=== PATIENT | female | born 1955 | race Caucasian/White ===

== ENCOUNTER → 2019-03-14 | Day surgery (SDC) | payer MEDICARE ==
[2019-03-11 15:39] LABS: BASOPHILS % 0.6 % (0.0-1.0); EOSINOPHILS # (AUTO) 0.2 (0.0-0.4); EOSINOPHILS % 4.7 % (0.0-6.0); HEMATOCRIT 33.4 % (34.2-44.1); HEMOGLOBIN 10.8 g/dL (12.0-16.0); LYMPHOCYTES % 19.9 % (18.0-39.1); MEAN CORPUSCULAR HEMOGLOBIN 33.3 pg (28-32); MEAN CORPUSCULAR HGB CONC 32.3 g/dL (31-35); MEAN CORPUSCULAR VOLUME 103.1 fL (81-99); MONOCYTES # (AUTO) 0.6 (0.2-0.8); MONOCYTES % 11.2 % (4.4-11.3); NEUTROPHILS # (AUTO) 3.2 (2.1-6.9); NEUTROPHILS % 63.4 % (38.7-80.0); PLATELET COUNT 262 x10e3/uL (140-360); RED BLOOD COUNT 3.24 x10e6/uL (3.6-5.1)
--- NOTE | 2019-03-11 15:53 | Diagnostic Imaging Report ---
EXAMINATION: CHEST 2 VIEWS INDICATION: Pre-operative COMPARISON: None FINDINGS: LINES/TUBES:Thoracic spine neurostimulator lead partially visualized. LUNGS:The lungs are well-inflated. No focal consolidation or pulmonary edema. PLEURA:No pleural effusion or pneumothorax. MEDIASTINUM:The cardiomediastinal silhouette appears normal in size and shape. BONES/SOFT TISSUES:No acute osseous injury. Degenerative changes of the visualized spine ABDOMEN:No free air under the diaphragm. IMPRESSION: No focal pneumonia or pulmonary edema. Signed by: Merlin Luz MD on 03/11/2019 3:49 PM
[2019-03-11 15:54] LABS: ALANINE AMINOTRANSFERASE 35 IU/L (0-55); ALBUMIN 3.6 g/dL (3.5-5.0); ALBUMIN/GLOBULIN RATIO 1.7 (0.8-2.0); ALKALINE PHOSPHATASE 64 IU/L (40-150); ANION GAP 10.3 mmol/L (8-16); BLOOD UREA NITROGEN 19 mg/dL (7-26); BUN/CREATININE RATIO 24 (6-25); CALCIUM 8.4 mg/dL (8.4-10.2); CARBON DIOXIDE 27 mmol/L (22-29); CHLORIDE 106 mmol/L (98-107); CREATININE, SERUM 0.79 mg/dL (0.57-1.11); EST GLOMERULAR FILTRATION RATE > 60 ML/MIN (60-); GLUCOSE 70 mg/dL (74-118); POTASSIUM 4.3 mmol/L (3.5-5.1); SODIUM 139 mmol/L (136-145)
[~2019-03-14] MED LIST: CYMBALTA30 MG PO; FENTANYL CITRATE/PF 100MCG/2 ML INJ ONE; LISINOPRIL10 MG PO; MIDAZOLAM HCL 2 MG/2 ML VIAL ONE; PROPOFOL IV EMULSION 10 MG/ML 20 ML VIAL ONE; SIMETHICONE 40 MG/0.6 ML BTL ONE; SYNTHROID125 MCG PO
--- OUTSIDE RECORDS SUMMARY | 2019-03-14 06:41 | XMS REPORT ---
Author Author [facility] Address Unknown Phone Unavailable Care Team Providers Care Home Improvement Contractor Name Role Phone Kayla TRAN Unavailable Unavailable Payers Payer Name Policy Type Policy Number Effective Date Expiration Date Problems This patient has no known problems. Allergies, Adverse Reactions, Alerts Allergy Name Allergy Type Status Severity Reaction(s) Onset Date Inactive Date Treating Clinician Comments Iodinated Contrast- Oral and IV Dye DA Active U 2018-06-08 00:00:00 shellfish derived FA Active U 2018-06-08 00:00:00 shellfish derived DA Active U 2018-06-08 00:00:00 No Known Intolerances DA Active U 2008-11-07 00:00:00 Medications This patient has no known medications. Encounters Start Date/Time End Date/Time Encounter Type Admission Type Attending [facility] Care Facility Care Department Encounter ID 2019-01-08 08:27:00 2019-01-08 08:27:00 Outpatient [facility]SE [id number] Results Test Description Test Time Test Comments Text Results Atomic Results Result Comments CHEST 2 VIEWS 2019-03-11 15:49:00 [facility] [address] [place], [place] [address] Patient Name: ALANA LEWIS MR #: [id number] : 1955 Age/Sex: 63/F Req #: [id number] Adm Physician: Ordered by: INDY TRAN MD Report #: [id number] Location: OR Room/Bed: Procedure: [id number] DX/CHEST 2 VIEWS Exam Date: 03/11/19 Exam Time: 1529 REPORT STATUS: Signed EXAMINATION: CHEST 2 VIEWS INDICATION: Pre-operative COMPARISON: None FINDINGS: LINES/TUBES:Thoracic spine neurostimulator lead partially visualized. LUNGS:The lungs are well- inflated. No focal consolidation or pulmonary edema. PLEURA:No pleural effusion or pneumothorax. MEDIASTINUM:The cardiomediastinal silhouette appears normal in size and shape. BONES/SOFT TISSUES:No acute osseous injury. Degenerative changes of the visualized spine ABDOMEN:No free air under the diaphragm. IMPRESSION: No focal pneumonia or pulmonary edema. Signed by: Mitzi Pineda MD on 03/11/2019 3:49 PM Dictated By: MITZI PINEDA MD 0816 Transcribed By: PETER on 03/11/19 5958 COPY TO: INDY TRAN MD - SMALL INTESTINE 2019-02-01 11:29:00 FAX: Pedro Ruano [phone] [place]: St: REG FAX: Indy Leonardo [phone] Name: ALANA LEWIS [facility] : 1955 Age/S: 63/F [address] Unit #: [id number] Loc: [place] [address] Phys: Indy Tran MD Acct: [id number] Dis Date: Status: REG CLI PHONE #: [phone] Exam Date: 02/01/2019 1112 FAX #: [phone] Reason: INTUSSUSCEPTION EXAMS: CPT CODE: [id number] XR SMALL INTESTINE 50133 EXAMINATION: - XR UGI W/AIR W/O KUB, - XR SMALL INTESTINE. LOCATION: B2. HISTORY: Left upper abdominal pain. Patient has history of prior gastric bypass. Patient was found to have an intussusception on outpatient CT at another facility. COMPARISON: None. TECHNIQUE: Upper GI examination with small bowel follow through was performed with the oral administration of barium. Fluoroscopy time: 1.7 minutes Dose: 63 mGy FINDINGS: Views of the esophagus demonstrated no evidence of obstruction, perforation, or stricture. Contrast flowed freely past the gastroesophageal junction. Postsur gical changes of gastric bypass are redemonstrated. There was prompt gastric emptying with a normal appearance and configuration of the duodenum. No gastroesophageal reflux or hiatal hernia was identified during the examination. The caliber and appearance of the small bowel appears normal with no evidence of partial or complete small bowel obstruction. No masses are identified. The terminal ileum appears normal. IMPRESSION: Postsurgical changes of gastric bypass. Otherwise normal upper GI examination with small bowel follow-through. at 1129 Reported and signed by: Krystian Bunch MD CC: Pedro Cifuentes DO; Indy Tran MD Technologist: Mikki Wynn; STUDENT TECHNOLOGIST Trnscrd Date/Time/By: 02/01/2019 (1123) : By: [email or web address] [facility] Print D/T: S: 02/01/2019 (0619) PAGE 1 Signed Report - XR UGI W/AIR W/O KUB 2019-02-01 11:29:00 FAX: Pedro Ruano DO [phone] [place]: St: [facility] FAX: Indy Leonardo [phone] Name: ALANA LEWIS [facility] : 1955 Age/S: 63/F [address] Unit #: [id number] Loc: [place] [address] Phys: Indy Tran MD Acct: [id number] Dis Date: Status: REG CLI PHONE #: [phone] Exam Date: 02/01/2019 1045 FAX #: [phone] Reason: EXAMS: CPT CODE: [id number] XR UGI W/AIR W/O KUB 17272 EXAMINATION: - XR UGI W/AIR W/O KUB, - XR SMALL INTESTINE. LOCATION: B2. HISTORY: Left upper abdominal pain. Patient has history of prior gastric bypass. Patient was found to have an intussusception on outpatient CT at another facility. COMPARISON: None. TECHNIQUE: Upper GI examination with small bowel follow through was performed with the oral administration of barium. Fluoroscopy time: 1.7 minutes Dose: 63 mGy FINDINGS: Views of the esophagus demonstrated no evidence of obstruction, perforation, or stricture. Contrast flowed freely past the gastroesophageal junction. Postsur gical changes of gastric bypass are redemonstrated. There was prompt gastric emptying with a normal appearance and configuration of the duodenum. No gastroesophageal reflux or hiatal hernia was identified during the examination. The caliber and appearance of the small bowel appears normal with no evidence of partial or complete small bowel obstruction. No masses are identified. The terminal ileum appears normal. IMPRESSION: Postsurgical changes of gastric bypass. Otherwise normal upper GI examination with small bowel follow-through. at 1129 Reported and signed by: Krystian Bunch MD CC: Pedro Cifuentes DO; Indy Tran MD Technologist: Mikki Wynn; STUDENT TECHNOLOGIST Trnscrd Date/Time/By: 02/01/2019 (3370) : By: [email or web address] Orig Print D/T: S: 02/01/2019 (9980) PAGE 1 Signed Report SCR MAMM BILATERAL VA CAD DIGITAL 2018-12-17 11:29:10 - SCR MAMM BILATERAL VA CAD DIGITALBILATERAL DIGITAL SCREENING MAMMOGRAM 3D/2D WITH CAD: 12/14/2018CLINICAL: Asymptomatic. Digital breast tomosynthesis was performed in addition to routine CC and MLO views. Current mammographic images were evaluated by either a [employer] M-Vu or a [employer] ImageChecker CAD (computer aided detection system). Comparison is made to exams dated 08/16/2016 mammogram, 11/06 mammogram, and 05/10/2006 mammogram - [facility]-. The tissue of both breasts is predominantly fatty. There are benign calcifications in both breasts. No suspicious mass, architectural distortion, malignant type calcification, or lymph node abnormality detected. Breast architecture is stable compared to prior exams.IMPRESSION: BENIGNThere is no mammographic evidence of malignancy. Resume annual screening mammography in one year. Neftaly Mancia/nohemy:12/17/2018 11:29:10 copy to: Pedro Cifuentes DO, ph: [phone], fax: [phone] Technologist: Opal Marr , [facility]-FWletter sent: BIRADS 1-2 Normal Mammogram BI-RADS: 2 Benign SURGICAL SPECIMENS 2018-07-09 02:44:00 RUN DATE: 07/09/18 [facility] *LIVE* PAGE 1 RUN TIME: 244 Specimen Inquiry RUN USER: INTERFACE PATIENT: ALANA LEWIS LOC: JULIO U #: [id number] AGE/SX: 63/F ROOM: [facility] RE07/04/18REG DR: Keron Botello : [birth year] BED: 1 DIS: 07/06/18 STATUS: DIS Kadeem TLOC: SPEC #: [id number] RECD: 07/05/18 STATUS: SOUT REQ #: [id number] ELENA: 07/05/[address]: Keron Botello MD ENTERED: 07/07/18 SP TYPE: SURG SPEC OTHR DR: Marilynn Altman MD, Toby C DOORDERED: GM LEVEL 4 CODES: [id number] - VERTEBRA, NOS COPIES TO: Marilynn Altman MD [address] [place] [address] Pedro Cifuentes DO [address] [place], [place] [id number] Keron Botello MD [address], [address] [place] [address] PROCEDURES: GM LEVEL 4 (Incomplete) TISSUES: 1. VERTEBRA, NOS - mine engineering manager, dorsal column, stimulator FINAL DIAGNOSIS mine engineering manager, dorsal column stimulator: Gross diagnosis only. GROSS AND MICROSCOPIC GROSS EXAMINATION: Received fresh labeled dorsal column stimulator is a 5.2 x 4.5 x 1 cm stimulator with 2 wire leads labeled [employer] precision IP G. model SC-1110, serial #[id number]. Gross examination only. POST-OP DIAGNOSIS None given CONTINUED ON NEXT PAGE RUN DATE: 07/09/18 [facility] *LIVE* PAGE 2 RUN TIME: 024 Specimen Inquiry RUN USER: INTERFACE EDMOND JEFFERS #: [id number] PATIENT: ALANA LEWIS #[id number] (Continued) PRE-OP DIAGNOSIS Lumbar stenosis, status post lumbar decompression REVIEWED BY: KARLIE Signed SIGNATURE ON FILE Duglas Beaulieu DO 07/09/18 0244 END OF REPORT BASIC METABOLIC PANEL 2018 08:39:00 SODIUM (test code=NA) 143 mEq/L 134-147 POTASSIUM (test code=K) 4.6 mEq/L 3.4-5.0 CHLORIDE (test code=CL) 114 mEq/L 100-108 CARBON DIOXIDE (test code=CO2) 24 mEq/L 21-33 ANION GAP (test code=GAP) 10 0-20 GLUCOSE (test code=GLU) 77 mg/dL 70-110 BLOOD UREA NITROGEN (test code=BUN) 17 mg/dL 7-18 GLOMERULAR FILTRATION RATE (test code=GFR) 63.7 80-90 Units of measure=ml/min/1.73 m2 CREATININE (test code=CREAT) 0.9 mg/dL 0.6-1.3 CALCIUM (test code=CA) 7.8 mg/dL 8.0-10.5 CBC W/AUTO [id number] 07:52:00* Test Item Value Reference Range Comments WHITE BLOOD CELL (test code=WBC) 4.52 x10 3/uL 4.5-11.0 RED BLOOD CELL (test code=RBC) 2.96 x10 6/uL 3.54-5.02 HEMOGLOBIN (test code=HGB) 10.3 g/dL 11.0-15.0 HEMATOCRIT (test code=HCT) 32.5 % 33.0-45.0 MEAN CELL VOLUME (test code=MCV) 109.8 fL 81.0-99.0 MEAN CELL HGB (test code=MCH) 34.8 pg 27.0-33.0 MEAN CELL HGB CONCETRATION (test code=MCHC) 31.7 g/dL 33.0-37.0 RED CELL DISTRIBUTION WIDTH CV (test code=RDW) 12.6 % 11.5-14.5 RED CELL DISTRIBUTION WIDTH SD (test code=RDW-SD) 50.4 fL 37.0-54.0 PLATELET COUNT (test code=PLT) 194 x10 3/uL 150-400 MEAN PLATELET VOLUME (test code=MPV) 10.8 fL 7.0-9.0 NEUTROPHIL % (test code=NT%) 51.2 % 56.0-77.0 IMMATURE GRANULOCYTE % (test code=IG%) 0.2 % 0.0-2.0 LYMPHOCYTE % (test code=LY%) 32.3 % 14.0-32.0 MONOCYTE % (test code=MO%) 8.2 % 4.8-9.0 EOSINOPHIL % (test code=EO%) 7.7 % 0.3-3.7 BASOPHIL % (test code=BA%) 0.4 % 0.0-2.0 NUCLEATED RBC % (test code=NRBC%) 0.0 % 0-0 NEUTROPHIL # (test code=NT#) 2.31 x10 3/uL 2.0-7.6 IMMATURE GRANULOCYTE # (test code=IG#) 0.01 x10 3/uL 0.00-0.03 LYMPHOCYTE # (test code=LY#) 1.46 x10 3/uL 1.0-3.8 MONOCYTE # (test code=MO#) 0.37 x10 3/uL 0.1-0.8 EOSINOPHIL # (test code=EO#) 0.35 x10 3/uL 0.0-0.2 BASOPHIL # (test code=BA#) 0.02 x10 3/uL 0.0-0.2 NUCLEATED RBC # (test code=NRBC#) 0.00 x10 3/uL 0.0-0.1 MANUAL DIFF REQUIRED (test code=MDIFF) NO CBC W/AUTO [id number] 11:06:00* Test Item Value Reference Range Comments WHITE BLOOD CELL (test code=WBC) 6.24 x10 3/uL 4.5-11.0 RED BLOOD CELL (test code=RBC) 3.08 x10 6/uL 3.54-5.02 HEMOGLOBIN (test code=HGB) 10.6 g/dL 11.0-15.0 HEMATOCRIT (test code=HCT) 33.0 % 33.0-45.0 MEAN CELL VOLUME (test code=MCV) 107.1 fL 81.0-99.0 MEAN CELL HGB (test code=MCH) 34.4 pg 27.0-33.0 MEAN CELL HGB CONCETRATION (test code=MCHC) 32.1 g/dL 33.0-37.0 RED CELL DISTRIBUTION WIDTH CV (test code=RDW) 12.1 % 11.5-14.5 RED CELL DISTRIBUTION WIDTH SD (test code=RDW-SD) 47.8 fL 37.0-54.0 PLATELET COUNT (test code=PLT) 186 x10 3/uL 150-400 MEAN PLATELET VOLUME (test code=MPV) 10.6 fL 7.0-9.0 NEUTROPHIL % (test code=NT%) 77.6 % 56.0-77.0 IMMATURE GRANULOCYTE % (test code=IG%) 0.2 % 0.0-2.0 LYMPHOCYTE % (test code=LY%) 12.8 % 14.0-32.0 MONOCYTE % (test code=MO%) 8.8 % 4.8-9.0 EOSINOPHIL % (test code=EO%) 0.3 % 0.3-3.7 BASOPHIL % (test code=BA%) 0.3 % 0.0-2.0 NUCLEATED RBC % (test code=NRBC%) 0.0 % 0-0 NEUTROPHIL # (test code=NT#) 4.84 x10 3/uL 2.0-7.6 IMMATURE GRANULOCYTE # (test code=IG#) 0.01 x10 3/uL 0.00-0.03 LYMPHOCYTE # (test code=LY#) 0.80 x10 3/uL 1.0-3.8 MONOCYTE # (test code=MO#) 0.55 x10 3/uL 0.1-0.8 EOSINOPHIL # (test code=EO#) 0.02 x10 3/uL 0.0-0.2 BASOPHIL # (test code=BA#) 0.02 x10 3/uL 0.0-0.2 NUCLEATED RBC # (test code=NRBC#) 0.00 x10 3/uL 0.0-0.1 MANUAL DIFF REQUIRED (test code=MDIFF) NO RBC [id number] 11:06:00* Test Item Value Reference Range Comments POIKILOCYTOSIS (test code=POIK) 1+ ANISOCYTOSIS (test code=ANISO) 1+ MACROCYTOSIS (test code=MACR) 2+ OVALOCYTES (test code=OVAL) 1+ CBC W/AUTO [id number] 07:52:00* Test Item Value Reference Range Comments WHITE BLOOD CELL (test code=WBC) 6.24 x10 3/uL 4.5-11.0 RED BLOOD CELL (test code=RBC) 3.08 x10 6/uL 3.54-5.02 HEMOGLOBIN (test code=HGB) 10.6 g/dL 11.0-15.0 HEMATOCRIT (test code=HCT) 33.0 % 33.0-45.0 MEAN CELL VOLUME (test code=MCV) 107.1 fL 81.0-99.0 MEAN CELL HGB (test code=MCH) 34.4 pg 27.0-33.0 MEAN CELL HGB CONCETRATION (test code=MCHC) 32.1 g/dL 33.0-37.0 RED CELL DISTRIBUTION WIDTH CV (test code=RDW) 12.1 % 11.5-14.5 RED CELL DISTRIBUTION WIDTH SD (test code=RDW-SD) 47.8 fL 37.0-54.0 PLATELET COUNT (test code=PLT) 186 x10 3/uL 150-400 MEAN PLATELET VOLUME (test code=MPV) 10.6 fL 7.0-9.0 NEUTROPHIL % (test code=NT%) 77.6 % 56.0-77.0 IMMATURE GRANULOCYTE % (test code=IG%) 0.2 % 0.0-2.0 LYMPHOCYTE % (test code=LY%) 12.8 % 14.0-32.0 MONOCYTE % (test code=MO%) 8.8 % 4.8-9.0 EOSINOPHIL % (test code=EO%) 0.3 % 0.3-3.7 BASOPHIL % (test code=BA%) 0.3 % 0.0-2.0 NUCLEATED RBC % (test code=NRBC%) 0.0 % 0-0 NEUTROPHIL # (test code=NT#) 4.84 x10 3/uL 2.0-7.6 IMMATURE GRANULOCYTE # (test code=IG#) 0.01 x10 3/uL 0.00-0.03 LYMPHOCYTE # (test code=LY#) 0.80 x10 3/uL 1.0-3.8 MONOCYTE # (test code=MO#) 0.55 x10 3/uL 0.1-0.8 EOSINOPHIL # (test code=EO#) 0.02 x10 3/uL 0.0-0.2 BASOPHIL # (test code=BA#) 0.02 x10 3/uL 0.0-0.2 NUCLEATED RBC # (test code=NRBC#) 0.00 x10 3/uL 0.0-0.1 MANUAL DIFF REQUIRED (test code=MDIFF) NO RBC [id number] 07:52:00* Test Item Value Reference Range Comments ANISOCYTOSIS (test code=ANISO) CBC W/AUTO [id number] 07:52:00* Test Item Value Reference Range Comments WHITE BLOOD CELL (test code=WBC) 6.24 x10 3/uL 4.5-11.0 RED BLOOD CELL (test code=RBC) 3.08 x10 6/uL 3.54-5.02 HEMOGLOBIN (test code=HGB) 10.6 g/dL 11.0-15.0 HEMATOCRIT (test code=HCT) 33.0 % 33.0-45.0 MEAN CELL VOLUME (test code=MCV) 107.1 fL 81.0-99.0 MEAN CELL HGB (test code=MCH) 34.4 pg 27.0-33.0 MEAN CELL HGB CONCETRATION (test code=MCHC) 32.1 g/dL 33.0-37.0 RED CELL DISTRIBUTION WIDTH CV (test code=RDW) 12.1 % 11.5-14.5 RED CELL DISTRIBUTION WIDTH SD (test code=RDW-SD) 47.8 fL 37.0-54.0 PLATELET COUNT (test code=PLT) 186 x10 3/uL 150-400 MEAN PLATELET VOLUME (test code=MPV) 10.6 fL 7.0-9.0 NEUTROPHIL % (test code=NT%) 77.6 % 56.0-77.0 IMMATURE GRANULOCYTE % (test code=IG%) 0.2 % 0.0-2.0 LYMPHOCYTE % (test code=LY%) 12.8 % 14.0-32.0 MONOCYTE % (test code=MO%) 8.8 % 4.8-9.0 EOSINOPHIL % (test code=EO%) 0.3 % 0.3-3.7 BASOPHIL % (test code=BA%) 0.3 % 0.0-2.0 NUCLEATED RBC % (test code=NRBC%) 0.0 % 0-0 NEUTROPHIL # (test code=NT#) 4.84 x10 3/uL 2.0-7.6 IMMATURE GRANULOCYTE # (test code=IG#) 0.01 x10 3/uL 0.00-0.03 LYMPHOCYTE # (test code=LY#) 0.80 x10 3/uL 1.0-3.8 MONOCYTE # (test code=MO#) 0.55 x10 3/uL 0.1-0.8 EOSINOPHIL # (test code=EO#) 0.02 x10 3/uL 0.0-0.2 BASOPHIL # (test code=BA#) 0.02 x10 3/uL 0.0-0.2 NUCLEATED RBC # (test code=NRBC#) 0.00 x10 3/uL 0.0-0.1 MANUAL DIFF REQUIRED (test code=MDIFF) NO RBC [id number] 07:52:00* Test Item Value Reference Range Comments ANISOCYTOSIS (test code=ANISO) BASIC METABOLIC [id number] 07:29:00* Test Item Value Reference Range Comments SODIUM (test code=NA) 141 mEq/L 134-147 POTASSIUM (test code=K) 4.6 mEq/L 3.4-5.0 CHLORIDE (test code=CL) 112 mEq/L 100-108 CARBON DIOXIDE (test code=CO2) 24 mEq/L 21-33 ANION GAP (test code=GAP) 10 0-20 GLUCOSE (test code=GLU) 104 mg/dL 70-110 BLOOD UREA NITROGEN (test code=BUN) 12 mg/dL 7-18 GLOMERULAR FILTRATION RATE (test code=GFR) 85.4 80-90 Units of measure=ml/min/1.73 m2 CREATININE (test code=CREAT) 0.7 mg/dL 0.6-1.3 CALCIUM (test code=CA) 7.2 mg/dL 8.0-10.5 - XR FLUOROSCOPY 0-60 [id number] 13:29:00 FAX: Pedro Ruano DO [phone] [place]: St: ADM FAX: Keron Bravo [phone] Name: ALANA LEWIS [facility] : 1955 Age/S: 62/F [address] [place] [address] Unit #: [id number] Loc: [place] [address] Phys: Keron Botello MD Acct: [id number] Dis Date: Status: ADM IN PHONE #: [phone] Exam Date: 07/04/2018 1105 FAX #: [phone] Reason: LUMBAR STENOSIS EXAMS: CPT CODE: [id number] XR FLUOROSCOPY 0-60 MIN 56190 Intraprocedural fluoroscopy was provided by the Department of Radiology. Any images obtained were interpreted by the surgeon intraop eratively. FLUORO TIME: 5 seconds REFERENCE AIR KERMA : 5.1 mGy SL:01 at 1329 Reported and signed by: Larry Rivera M.D. CC: Pedro Cifuentes DO; Keron Botello MD Technologist: Kari Oliver RT(R) Trnscrd Date/Time/By: 07/04/2018 (9902) : By: Jameel Orig Print D/T: S: (1819) PAGE 1 Signed Rep ort HGB [id number] 13:09:00* Test Item Value Reference Range Comments HEMOGLOBIN (test code=HGB) 11.4 g/dL 11.0-15.0 HEMATOCRIT (test code=HCT) 35.3 % 33.0-45.0 [id number] 11:44:00* Test Item Value Reference Range Comments SODIUM (test code=NA/ABG) MEQ/L 134-147 [id number] 11:44:00* Test Item Value Reference Range Comments POTASSIUM (test code=K/ABG) MEQ/L 3.4-5.0 CREATININE [id number] 11:44:00* Test Item Value Reference Range Comments CREATININE ABG (test code=CREAABG) mg/dL 0.6-1.0 [id number] 11:44:00* Test Item Value Reference Range Comments HEMOGLOBIN (test code=HGB/ABG) G/DL 11.0-15.0 [id number] 11:44:00* Test Item Value Reference Range Comments HEMATOCRIT (test code=HCT/ABG) % 33.0-45.0 POC IONIZED [id number] 11:44:00* Test Item Value Reference Range Comments POC IONIZED CALCIUM (test code=POCCA) MMOL/L 1.12-1.32 POC [id number] 11:44:00* Test Item Value Reference Range Comments POC GLUCOSE (test code=POCGLU) MG/DL 70-110 POC VENOUS BLOOD [id number] 11:44:00* Test Item Value Reference Range Comments POC VENOUS BLOOD GAS PH (test code=POCPHV) 7.363 7.33-7.45 POC VENOUS BLOOD GAS PCO2 (test code=KTWHJY7X) 41.6 mmHg 43-47 POC VENOUS BLOOD GAS PO2 (test code=ZTILJ2M) 58.1 mmHG 10-50 POC TCO2 VENOUS (test code=SBJGVL4Q) 24.9 POC HCO3 VENOUS (test code=WZZGSC2C) 23.7 MMOL/L 22-27 POC BASE EXCESS VENOUS (test code=POCBEV) -1.7 MMOL/L -4.0-4.0 POC O2 SATURATION VENOUS (test code=PDXM1FZ) 88.7 % 60-80 [id number] 11:44:00* Test Item Value Reference Range Comments CHLORIDE (test code=CL/VBG) MEQ/L [id number] 11:44:00* Test Item Value Reference Range Comments SODIUM (test code=NA/ABG) 141 MEQ/L 134-147 [id number] 11:44:00* Test Item Value Reference Range Comments POTASSIUM (test code=K/ABG) MEQ/L 3.4-5.0 CREATININE [id number] 11:44:00* Test Item Value Reference Range Comments CREATININE ABG (test code=CREAABG) mg/dL 0.6-1.0 [id number] 11:44:00* Test Item Value Reference Range Comments HEMOGLOBIN (test code=HGB/ABG) G/DL 11.0-15.0 [id number] 11:44:00* Test Item Value Reference Range Comments HEMATOCRIT (test code=HCT/ABG) % 33.0-45.0 POC IONIZED [id number] 11:44:00* Test Item Value Reference Range Comments POC IONIZED CALCIUM (test code=POCCA) MMOL/L 1.12-1.32 POC [id number] 11:44:00* Test Item Value Reference Range Comments POC GLUCOSE (test code=POCGLU) MG/DL 70-110 POC VENOUS BLOOD [id number] 11:44:00* Test Item Value Reference Range Comments POC VENOUS BLOOD GAS PH (test code=POCPHV) 7.363 7.33-7.45 POC VENOUS BLOOD GAS PCO2 (test code=KBPJWJ3R) 41.6 mmHg 43-47 POC VENOUS BLOOD GAS PO2 (test code=ALCAV9F) 58.1 mmHG 10-50 POC TCO2 VENOUS (test code=CLPDOZ4L) 24.9 POC HCO3 VENOUS (test code=WJDEMF2U) 23.7 MMOL/L 22-27 POC BASE EXCESS VENOUS (test code=POCBEV) -1.7 MMOL/L -4.0-4.0 POC O2 SATURATION VENOUS (test code=DJQU7BA) 88.7 % 60-80 [id number] 11:44:00* Test Item Value Reference Range Comments CHLORIDE (test code=CL/VBG) MEQ/L [id number] 11:44:00* Test Item Value Reference Range Comments SODIUM (test code=NA/ABG) 141 MEQ/L 134-147 [id number] 11:44:00* Test Item Value Reference Range Comments POTASSIUM (test code=K/ABG) 4.0 MEQ/L 3.4-5.0 CREATININE [id number] 11:44:00* Test Item Value Reference Range Comments CREATININE ABG (test code=CREAABG) mg/dL 0.6-1.0 [id number] 11:44:00* Test Item Value Reference Range Comments HEMOGLOBIN (test code=HGB/ABG) G/DL 11.0-15.0 [id number] 11:44:00* Test Item Value Reference Range Comments HEMATOCRIT (test code=HCT/ABG) % 33.0-45.0 POC IONIZED [id number] 11:44:00* Test Item Value Reference Range Comments POC IONIZED CALCIUM (test code=POCCA) MMOL/L 1.12-1.32 POC [id number] 11:44:00* Test Item Value Reference Range Comments POC GLUCOSE (test code=POCGLU) MG/DL 70-110 POC VENOUS BLOOD [id number] 11:44:00* Test Item Value Reference Range Comments POC VENOUS BLOOD GAS PH (test code=POCPHV) 7.363 7.33-7.45 POC VENOUS BLOOD GAS PCO2 (test code=CCYGWH5Y) 41.6 mmHg 43-47 POC VENOUS BLOOD GAS PO2 (test code=WXPNG1N) 58.1 mmHG 10-50 POC TCO2 VENOUS (test code=WXHPGL1B) 24.9 POC HCO3 VENOUS (test code=IDXSUI3X) 23.7 MMOL/L 22-27 POC BASE EXCESS VENOUS (test code=POCBEV) -1.7 MMOL/L -4.0-4.0 POC O2 SATURATION VENOUS (test code=ARZP9VS) 88.7 % 60-80 [id number] 11:44:00* Test Item Value Reference Range Comments CHLORIDE (test code=CL/VBG) MEQ/L [id number] 11:44:00* Test Item Value Reference Range Comments SODIUM (test code=NA/ABG) 141 MEQ/L 134-147 [id number] 11:44:00* Test Item Value Reference Range Comments POTASSIUM (test code=K/ABG) 4.0 MEQ/L 3.4-5.0 CREATININE [id number] 11:44:00* Test Item Value Reference Range Comments CREATININE ABG (test code=CREAABG) mg/dL 0.6-1.0 [id number] 11:44:00* Test Item Value Reference Range Comments HEMOGLOBIN (test code=HGB/ABG) G/DL 11.0-15.0 [id number] 11:44:00* Test Item Value Reference Range Comments HEMATOCRIT (test code=HCT/ABG) % 33.0-45.0 POC IONIZED [id number] 11:44:00* Test Item Value Reference Range Comments POC IONIZED CALCIUM (test code=POCCA) 1.14 MMOL/L 1.12-1.32 POC [id number] 11:44:00* Test Item Value Reference Range Comments POC GLUCOSE (test code=POCGLU) MG/DL 70-110 POC VENOUS BLOOD [id number] 11:44:00* Test Item Value Reference Range Comments POC VENOUS BLOOD GAS PH (test code=POCPHV) 7.363 7.33-7.45 POC VENOUS BLOOD GAS PCO2 (test code=IOHVJE2U) 41.6 mmHg 43-47 POC VENOUS BLOOD GAS PO2 (test code=KNURF0N) 58.1 mmHG 10-50 POC TCO2 VENOUS (test code=IELSPR8C) 24.9 POC HCO3 VENOUS (test code=KORWJP5I) 23.7 MMOL/L 22-27 POC BASE EXCESS VENOUS (test code=POCBEV) -1.7 MMOL/L -4.0-4.0 POC O2 SATURATION VENOUS (test code=BFLP8KU) 88.7 % 60-80 [id number] 11:44:00* Test Item Value Reference Range Comments CHLORIDE (test code=CL/VBG) MEQ/L [id number] 11:44:00* Test Item Value Reference Range Comments SODIUM (test code=NA/ABG) 141 MEQ/L 134-147 [id number] 11:44:00* Test Item Value Reference Range Comments POTASSIUM (test code=K/ABG) 4.0 MEQ/L 3.4-5.0 CREATININE [id number] 11:44:00* Test Item Value Reference Range Comments CREATININE ABG (test code=CREAABG) mg/dL 0.6-1.0 [id number] 11:44:00* Test Item Value Reference Range Comments HEMOGLOBIN (test code=HGB/ABG) G/DL 11.0-15.0 [id number] 11:44:00* Test Item Value Reference Range Comments HEMATOCRIT (test code=HCT/ABG) % 33.0-45.0 POC IONIZED [id number] 11:44:00* Test Item Value Reference Range Comments POC IONIZED CALCIUM (test code=POCCA) 1.14 MMOL/L 1.12-1.32 POC [id number] 11:44:00* Test Item Value Reference Range Comments POC GLUCOSE (test code=POCGLU) 103 MG/DL 70-110 POC VENOUS BLOOD [id number] 11:44:00* Test Item Value Reference Range Comments POC VENOUS BLOOD GAS PH (test code=POCPHV) 7.363 7.33-7.45 POC VENOUS BLOOD GAS PCO2 (test code=KUGYOA1K) 41.6 mmHg 43-47 POC VENOUS BLOOD GAS PO2 (test code=BLEVJ4M) 58.1 mmHG 10-50 POC TCO2 VENOUS (test code=GZVZUQ6D) 24.9 POC HCO3 VENOUS (test code=BBHTUF2G) 23.7 MMOL/L 22-27 POC BASE EXCESS VENOUS (test code=POCBEV) -1.7 MMOL/L -4.0-4.0 POC O2 SATURATION VENOUS (test code=HJPY8FS) 88.7 % 60-80 [id number] 11:44:00* Test Item Value Reference Range Comments CHLORIDE (test code=CL/VBG) MEQ/L [id number] 11:44:00* Test Item Value Reference Range Comments SODIUM (test code=NA/ABG) 141 MEQ/L 134-147 [id number] 11:44:00* Test Item Value Reference Range Comments POTASSIUM (test code=K/ABG) 4.0 MEQ/L 3.4-5.0 CREATININE [id number] 11:44:00* Test Item Value Reference Range Comments CREATININE ABG (test code=CREAABG) mg/dL 0.6-1.0 [id number] 11:44:00* Test Item Value Reference Range Comments HEMOGLOBIN (test code=HGB/ABG) G/DL 11.0-15.0 [id number] 11:44:00* Test Item Value Reference Range Comments HEMATOCRIT (test code=HCT/ABG) 32 % 33.0-45.0 POC IONIZED [id number] 11:44:00* Test Item Value Reference Range Comments POC IONIZED CALCIUM (test code=POCCA) 1.14 MMOL/L 1.12-1.32 POC [id number] 11:44:00* Test Item Value Reference Range Comments POC GLUCOSE (test code=POCGLU) 103 MG/DL 70-110 POC VENOUS BLOOD [id number] 11:44:00* Test Item Value Reference Range Comments POC VENOUS BLOOD GAS PH (test code=POCPHV) 7.363 7.33-7.45 POC VENOUS BLOOD GAS PCO2 (test code=WDNFHG3P) 41.6 mmHg 43-47 POC VENOUS BLOOD GAS PO2 (test code=YNHMJ7Q) 58.1 mmHG 10-50 POC TCO2 VENOUS (test code=QJSBFD3X) 24.9 POC HCO3 VENOUS (test code=XWTINQ5Y) 23.7 MMOL/L 22-27 POC BASE EXCESS VENOUS (test code=POCBEV) -1.7 MMOL/L -4.0-4.0 POC O2 SATURATION VENOUS (test code=RHVI6ZA) 88.7 % 60-80 [id number] 11:44:00* Test Item Value Reference Range Comments CHLORIDE (test code=CL/VBG) MEQ/L [id number] 11:44:00* Test Item Value Reference Range Comments SODIUM (test code=NA/ABG) 141 MEQ/L 134-147 [id number] 11:44:00* Test Item Value Reference Range Comments POTASSIUM (test code=K/ABG) 4.0 MEQ/L 3.4-5.0 CREATININE [id number] 11:44:00* Test Item Value Reference Range Comments CREATININE ABG (test code=CREAABG) mg/dL 0.6-1.0 [id number] 11:44:00* Test Item Value Reference Range Comments HEMOGLOBIN (test code=HGB/ABG) 10.7 G/DL 11.0-15.0 [id number] 11:44:00* Test Item Value Reference Range Comments HEMATOCRIT (test code=HCT/ABG) 32 % 33.0-45.0 POC IONIZED [id number] 11:44:00* Test Item Value Reference Range Comments POC IONIZED CALCIUM (test code=POCCA) 1.14 MMOL/L 1.12-1.32 POC [id number] 11:44:00* Test Item Value Reference Range Comments POC GLUCOSE (test code=POCGLU) 103 MG/DL 70-110 POC VENOUS BLOOD [id number] 11:44:00* Test Item Value Reference Range Comments POC VENOUS BLOOD GAS PH (test code=POCPHV) 7.363 7.33-7.45 POC VENOUS BLOOD GAS PCO2 (test code=CHKXCT0X) 41.6 mmHg 43-47 POC VENOUS BLOOD GAS PO2 (test code=PPUUT0K) 58.1 mmHG 10-50 POC TCO2 VENOUS (test code=RYNFXW9K) 24.9 POC HCO3 VENOUS (test code=QAFEBF1O) 23.7 MMOL/L 22-27 POC BASE EXCESS VENOUS (test code=POCBEV) -1.7 MMOL/L -4.0-4.0 POC O2 SATURATION VENOUS (test code=OSTY5NQ) 88.7 % 60-80 [id number] 11:44:00* Test Item Value Reference Range Comments CHLORIDE (test code=CL/VBG) MEQ/L [id number] 11:44:00* Test Item Value Reference Range Comments SODIUM (test code=NA/ABG) 141 MEQ/L 134-147 [id number] 11:44:00* Test Item Value Reference Range Comments POTASSIUM (test code=K/ABG) 4.0 MEQ/L 3.4-5.0 CREATININE [id number] 11:44:00* Test Item Value Reference Range Comments CREATININE ABG (test code=CREAABG) mg/dL 0.6-1.0 [id number] 11:44:00* Test Item Value Reference Range Comments HEMOGLOBIN (test code=HGB/ABG) 10.7 G/DL 11.0-15.0 [id number] 11:44:00* Test Item Value Reference Range Comments HEMATOCRIT (test code=HCT/ABG) 32 % 33.0-45.0 POC IONIZED [id number] 11:44:00* Test Item Value Reference Range Comments POC IONIZED CALCIUM (test code=POCCA) 1.14 MMOL/L 1.12-1.32 POC [id number] 11:44:00* Test Item Value Reference Range Comments POC GLUCOSE (test code=POCGLU) 103 MG/DL 70-110 POC VENOUS BLOOD [id number] 11:44:00* Test Item Value Reference Range Comments POC VENOUS BLOOD GAS PH (test code=POCPHV) 7.363 7.33-7.45 POC VENOUS BLOOD GAS PCO2 (test code=SLARKX1Q) 41.6 mmHg 43-47 POC VENOUS BLOOD GAS PO2 (test code=MMAXA8C) 58.1 mmHG 10-50 POC TCO2 VENOUS (test code=VBIJHN2W) 24.9 POC HCO3 VENOUS (test code=ZGDPGC5R) 23.7 MMOL/L 22-27 POC BASE EXCESS VENOUS (test code=POCBEV) -1.7 MMOL/L -4.0-4.0 POC O2 SATURATION VENOUS (test code=ZTFO6NP) 88.7 % 60-80 [id number] 11:44:00* Test Item Value Reference Range Comments CHLORIDE (test code=CL/VBG) 106 MEQ/L [id number] 11:44:00* Test Item Value Reference Range Comments SODIUM (test code=NA/ABG) 141 MEQ/L 134-147 [id number] 11:44:00* Test Item Value Reference Range Comments POTASSIUM (test code=K/ABG) 4.0 MEQ/L 3.4-5.0 CREATININE [id number] 11:44:00* Test Item Value Reference Range Comments CREATININE ABG (test code=CREAABG) 0.7 mg/dL 0.6-1.0 [id number] 11:44:00* Test Item Value Reference Range Comments HEMOGLOBIN (test code=HGB/ABG) 10.7 G/DL 11.0-15.0 [id number] 11:44:00* Test Item Value Reference Range Comments HEMATOCRIT (test code=HCT/ABG) 32 % 33.0-45.0 POC IONIZED [id number] 11:44:00* Test Item Value Reference Range Comments POC IONIZED CALCIUM (test code=POCCA) 1.14 MMOL/L 1.12-1.32 POC [id number] 11:44:00* Test Item Value Reference Range Comments POC GLUCOSE (test code=POCGLU) 103 MG/DL 70-110 POC VENOUS BLOOD [id number] 11:44:00* Test Item Value Reference Range Comments POC VENOUS BLOOD GAS PH (test code=POCPHV) 7.363 7.33-7.45 POC VENOUS BLOOD GAS PCO2 (test code=MKSHKT9P) 41.6 mmHg 43-47 POC VENOUS BLOOD GAS PO2 (test code=YEHUJ6S) 58.1 mmHG 10-50 POC TCO2 VENOUS (test code=JYDNVD6P) 24.9 POC HCO3 VENOUS (test code=HNBSHL1Y) 23.7 MMOL/L 22-27 POC BASE EXCESS VENOUS (test code=POCBEV) -1.7 MMOL/L -4.0-4.0 POC O2 SATURATION VENOUS (test code=PZNQ9WS) 88.7 % 60-80 [id number] 11:44:00* Test Item Value Reference Range Comments CHLORIDE (test code=CL/VBG) 106 MEQ/L BASIC METABOLIC [id number] 10:11:00* Test Item Value Reference Range Comments SODIUM (test code=NA) 142 mEq/L 134-147 POTASSIUM (test code=K) 4.2 mEq/L 3.4-5.0 CHLORIDE (test code=CL) 110 mEq/L 100-108 CARBON DIOXIDE (test code=CO2) 27 mEq/L 21-33 ANION GAP (test code=GAP) 9 0-20 GLUCOSE (test code=GLU) 79 mg/dL 70-110 BLOOD UREA NITROGEN (test code=BUN) 21 mg/dL 7-18 GLOMERULAR FILTRATION RATE (test code=GFR) 85.4 80-90 Units of measure=ml/min/1.73 m2 CREATININE (test code=CREAT) 0.7 mg/dL 0.6-1.3 CALCIUM (test code=CA) 8.0 mg/dL 8.0-10.5 PROTHROMBIN [id number] 10:10:00* Test Item Value Reference Range Comments PROTHROMBIN TIME PATIENT (test code=PTP) 12.1 SECONDS 9.3-12.9 INTERNATIONAL NORMAL RATIO (test code=INR) 1.1 0.8-1.2 TARGET INR BY INDICATION Indication INR1. Prophylaxis of venous thrombosis 2.0 - 3.0 (orthopedic surgery), Prophylaxis of venous thrombosis (other than high-risk surgery), Treatment of Deep Vein Thrombosis/Pulmonary Embolism, Prevention of systemic embolism - Tissue heart valves, Acute Myocardial Infarction (to prevent systemic embolism), Valvular heart disease, Atrial Fibrillation, Bileaflet mechanical valve in aortic position.2. Mechanical prosthetic valves (high risk), 2.5 - 3.5 Presence of Lupus Anticoagulant or Antiphospholipid Antibodies, Prevention of systemic embolism - Acute Myocardial Infarction (to prevent recurrent infarct). THROMBOPLASTIN TIME [id number] 10:10:00* Test Item Value Reference Range Comments THROMBOPLASTIN TIME PARTIAL (test code=PTT) 29.9 Seconds 25.0-39.5 Therapeutic Range: 61.8-83.8 Sec Effective 06/05/2013 - XR CHEST 2 [id number] 10:02:00 FAX: Pedro Ruano DO [phone] [place]: St: PRE FAX: Keron Bravo [phone] Name: ALANA LEWIS [facility] : 1955 Age/S: 62/F [address] [place] [address] Unit #: [id number] Loc: [place] [address] Phys: Keron Botello MD Acct: [id number] Dis Date: Status: [place] [facility] [place] [facility] [place]ONE #: [phone] Exam Date: 06/29/2018 0951 FAX #: [phone] Reason: PREOP EXAMS: CPT CODE: [id number] XR CHEST 2 V 25683 CHEST RADIOGRAPHS - PA AND LATERAL: COMPARISON: None CLINICAL HISTORY: PREOP The cardiopericardial silhouette is within normal limits. Lungs are clear. No vascular congestion or pneumothorax. Metallic electrode wires are superimposed over the posterior aspect of the lower thoracic spine. IMPRESSION: No acute pulmonary abnormality. at 1002 Reported and signed by: Abhay Adan M.D. CC: Pedro Cifuentes DO; Keron Botello MD Technologist: RT Pramod(Nicole) Trnscrd Date/Time/By: 06/29/2018 (1002) : By: [email or web address] Orig Print D/T: S: 06/29/2018 (1008) PAGE 1 Signed Report CBC W/AUTO [id number] 09:54:00* Test Item Value Reference Range Comments WHITE BLOOD CELL (test code=WBC) 2.27 x10 3/uL 4.5-11.0 RED BLOOD CELL (test code=RBC) 3.57 x10 6/uL 3.54-5.02 HEMOGLOBIN (test code=HGB) 12.3 g/dL 11.0-15.0 HEMATOCRIT (test code=HCT) 38.1 % 33.0-45.0 MEAN CELL VOLUME (test code=MCV) 106.7 fL 81.0-99.0 MEAN CELL HGB (test code=MCH) 34.5 pg 27.0-33.0 MEAN CELL HGB CONCETRATION (test code=MCHC) 32.3 g/dL 33.0-37.0 RED CELL DISTRIBUTION WIDTH CV (test code=RDW) 12.2 % 11.5-14.5 RED CELL DISTRIBUTION WIDTH SD (test code=RDW-SD) 48.4 fL 37.0-54.0 PLATELET COUNT (test code=PLT) 215 x10 3/uL 150-400 MEAN PLATELET VOLUME (test code=MPV) 9.7 fL 7.0-9.0 NEUTROPHIL % (test code=NT%) 50.2 % 56.0-77.0 IMMATURE GRANULOCYTE % (test code=IG%) 0.0 % 0.0-2.0 LYMPHOCYTE % (test code=LY%) 31.3 % 14.0-32.0 MONOCYTE % (test code=MO%) 10.6 % 4.8-9.0 EOSINOPHIL % (test code=EO%) 7.0 % 0.3-3.7 BASOPHIL % (test code=BA%) 0.9 % 0.0-2.0 NUCLEATED RBC % (test code=NRBC%) 0.0 % 0-0 NEUTROPHIL # (test code=NT#) 1.14 x10 3/uL 2.0-7.6 IMMATURE GRANULOCYTE # (test code=IG#) 0.00 x10 3/uL 0.00-0.03 LYMPHOCYTE # (test code=LY#) 0.71 x10 3/uL 1.0-3.8 MONOCYTE # (test code=MO#) 0.24 x10 3/uL 0.1-0.8 EOSINOPHIL # (test code=EO#) 0.16 x10 3/uL 0.0-0.2 BASOPHIL # (test code=BA#) 0.02 x10 3/uL 0.0-0.2 NUCLEATED RBC # (test code=NRBC#) 0.00 x10 3/uL 0.0-0.1 MANUAL DIFF REQUIRED (test code=MDIFF) NO - CT L-SPINE W/O [id number] 15:28:00 Name: ALANA LEWIS [facility] : 1955 Age/S: 62 / F [address] [place] [address] Unit #: [id number] Loc: [place] [address] Phys: Keron Botello MD Acct: [id number] Dis Date: Status: [place] [facility] [place] [facility] [place] PHONE #: [phone] Exam Date: 06/11/2018 1310 FAX #: [phone] Reason: SPINAL STENOSIS-LUMBAR, LOW BACK PAIN, RADICULO EXAMS: CPT CODE: [id number] CT L-SPINE W/O CONTRAST 86565 PROCEDURE: CT LUMBAR SPINE MYELOGRAM INDICATION: 62 year old female with spinal stenosis COMPARISON: None. TECHNIQUE: Noncontrast helical imaging performed thoracolumbar junction through upper sacrum. Multiplanar reconstructions are available. DOSE: CT imaging performed at this location utilizes radiation dose optimization technique which includes one or more of the followin) Automated exposure control; 2) Adjustment of the mA and/or kV according to patient's size; 3) Use of iterative reconstruction techniques DLP (mGy-cm): 1363.70 FINDINGS: ALIGNMENT AND GENERAL ASSESSMENT: There are 5 lumbar vertebral segments. Prior posterior surgical fusion from L3 to S1 with posterior rods and pedicle screws. The right-sided L4 pedicle screw appears to abut the right anterolateral aspect of the thecal sac. Right hemilaminectomy at L4 . No evidence of hardware fracture or loosening. No acute fracture. Gra de 1 retrolisthesis of L2 on L3 and L3 on L4. Grade 1 anterolisthesis of L4 on L5. Mild convex left scoliosis. Cord terminates at L1-L2. Facet cuate ints are maintained. The anterior and posterior paraspinous soft tissues are unremarkable. DISC SPACES AND SOFT TISSUES: T12-L1: Mild disc space narrowing and vacuum phenomenon. No significant spinal canal or neuroforaminal stenosis. L1-2: Mild disc space narrowing. No significa nt spinal canal or neuroforaminal stenosis. Mild left facet degeneration. L2-3: Disc space narrowing and vacuum phenomenon. Posterior disc o steophyte complex and ligamentum flavum thickening without significant spi nal canal stenosis. Moderate bilateral facet degeneration. Mild bilatera l neuroforaminal stenosis. L3-4: Disc space narrowing. No significant spi nal canal stenosis. Moderate bilateral facet degeneration. Moderate bila teral neuroforaminal stenosis. L4-5: Disc space narrowing. Mild lef t greater than right ligamentum flavum hypertrophy. No significant spinal canal stenosis. Moderate to severe bilateral facet degeneration. Modera te to severe bilateral neuroforaminal stenosis. L5-S1: No significan t spinal canal stenosis. Moderate left and mild PAGE 1 Signed Report (CONTINUED) Name: ALANA LEWIS [facility] : 1955 Age/S: 62 / F [address] [place] [address] Unit #: [id number] Loc: [place] [address] Phys: Keron Botello MD Acct: [id number] Dis Date: Status: REG [facility] [place] PHONE #: [phone] Exam Date: 06/11 1310 FAX #: [phone] Reason: SPINAL STENOSIS -LUMBAR, LOW BACK PAIN, RADICULO EXAMS: CPT CODE: [id number] CT L-SPINE W/O CONTRAST 72 131 <Continued> right facet degeneration. Mild bilateral neuroforaminal stenosis. OTHER: Evidence of prior gastric surgery. Cholecystectomy clips noted. Punctate calcification in the right kidney likely representing nonobstructing intrarenal stone. IMPRESSION: 1. Prior posterior surgical fusion from L3 to S1. The right-sided L4 pedicle screw is noted to abut the right anterolateral aspect of the thecal sac. 2. Degenerative changes of the lumbar spine resulting in multilevel neuroforaminal stenosis. 3. Nonobstructing right nephrolithiasis. SL: [id number] at 1528 Reported and signed by: Joselo Sims M.D. CC: Pedro Cifuentes DO; Keron Botello MD Technologist:RT Roberto Carlos(R)(CT) CTDI: DLP: Trnscb Date/Time: 06/11/2018 (1528) [email or web address] Orig Print D/T: S: 06/11/2018 (1531) CTDI: DLP: PAGE 2 Signed Report - XR MYELOGRAM [id number] 14:48:00 FAX: Pedro Ruano DO [phone] [place]: St: REG FAX: Keron Bravo [phone] Name: ALANA LEWIS [facility] : 1955 Age/S: 62/F [address] [place] [address] Unit #: [id number] Loc: [place] [address] Phys: Keron Botello MD Acct: [id number] Dis Date: Status: REG [facility] [place] PHONE #: [phone] Exam Date: 06/11/2018 1250 FAX #: [phone] Reason: EXAMS: CPT CODE: [id number] XR MYELOGRAM L-SPINE 64159 PROCEDURE: Fluoroscopic guided lumbar puncture for CT myelogram. INDICATION: 62-year-old female with spinal stenosis. COMPARISON: None. TECHNICAL: Fluoroscopic time 2.7 minutes. Reference Air Kerma Dose 128 mGy. PROCEDURE: The procedure, risks, benefits and alternatives were discussed. Informed consent was obtained. Timeout was performed prior to the procedure. The patient was placed in the prone position. Posterior lower back was sterilely prepped and draped. 1% lidocaine was used for local anesth esia. 22-gauge spinal needle was advanced through the posterior L2-L3 spac e, into the central canal. Images were obtained to document the needle po sition. Contrast was instilled into the lumbar thecal sac. Inner stylette was replaced, and the needle was removed. Pressure was applied at the punc ture site with adequate hemostasis. Sterile dressing was applied. The xochitl ent had no complaints and there were no evident complications. FINDINGS: Intrathecal contrast injected: 12 cc of Isovue-M 200 I mages demonstrate intrathecal contrast within the lumbar spine. IMPRESSION: 1. Technically successful lumbar puncture for CT myelogram. PLAN: CT myelogram imaging. SL: [id number] Electronically Signed by Jaron Sims on 08/2018 at 1448 Reported and signed by: Joselo Sims M.D. PAGE 1 Signed Report (CONTINUED) FAX: Pedro Ruano DO [phone] [place]: St: REG FAX: Keron Bravo [phone] Name: ALANA LEWIS [facility] : 1955 Age/S: 62/F [address] [place] [address] Unit #: [id number] Loc: [place] [address] Phys: Keron Botello MD Acct: [id number] Dis Date: Status: REG [facility] [place] [place] PHONE #: [phone] Exam Date: 06/11/2018 1250 FAX #: [phone] Reason: EXAMS: CPT CODE: [id number] XR MYELOGRAM L-SPINE 50014 <Continued> CC: Pedro Cifuentes DO; Keron Botello MD Technologist: Ulices Alicea, RT(R) Trnscrd Date/Time/By: 06/11/2018 (5762) : By: [email or web address] Orig Print D/T: S: 06/11/2018 (1296) PAGE 2 Signed Report CBC W/AUTO DIFF 2018-06-11 10:01:00* Test Item Value Reference Range Comments WHITE BLOOD CELL (test code=WBC) 6.59 x10 3/uL 4.5-11.0 RED BLOOD CELL (test code=RBC) 3.70 x10 6/uL 3.54-5.02 HEMOGLOBIN (test code=HGB) 12.8 g/dL 11.0-15.0 HEMATOCRIT (test code=HCT) 39.8 % 33.0-45.0 MEAN CELL VOLUME (test code=MCV) 107.6 fL 81.0-99.0 MEAN CELL HGB (test code=MCH) 34.6 pg 27.0-33.0 MEAN CELL HGB CONCETRATION (test code=MCHC) 32.2 g/dL 33.0-37.0 RED CELL DISTRIBUTION WIDTH CV (test code=RDW) 12.1 % 11.5-14.5 RED CELL DISTRIBUTION WIDTH SD (test code=RDW-SD) 48.1 fL 37.0-54.0 PLATELET COUNT (test code=PLT) 270 x10 3/uL 150-400 MEAN PLATELET VOLUME (test code=MPV) 9.8 fL 7.0-9.0 NEUTROPHIL % (test code=NT%) 89.8 % 56.0-77.0 IMMATURE GRANULOCYTE % (test code=IG%) 0.3 % 0.0-2.0 LYMPHOCYTE % (test code=LY%) 6.4 % 14.0-32.0 MONOCYTE % (test code=MO%) 3.2 % 4.8-9.0 EOSINOPHIL % (test code=EO%) 0.0 % 0.3-3.7 BASOPHIL % (test code=BA%) 0.3 % 0.0-2.0 NUCLEATED RBC % (test code=NRBC%) 0.0 % 0-0 NEUTROPHIL # (test code=NT#) 5.92 x10 3/uL 2.0-7.6 IMMATURE GRANULOCYTE # (test code=IG#) 0.02 x10 3/uL 0.00-0.03 LYMPHOCYTE # (test code=LY#) 0.42 x10 3/uL 1.0-3.8 MONOCYTE # (test code=MO#) 0.21 x10 3/uL 0.1-0.8 EOSINOPHIL # (test code=EO#) 0.00 x10 3/uL 0.0-0.2 BASOPHIL # (test code=BA#) 0.02 x10 3/uL 0.0-0.2 NUCLEATED RBC # (test code=NRBC#) 0.00 x10 3/uL 0.0-0.1 MANUAL DIFF REQUIRED (test code=MDIFF) NO RBC [id number] 10:01:00* Test Item Value Reference Range Comments ANISOCYTOSIS (test code=ANISO) 1+ MACROCYTOSIS (test code=MACR) 2+ PROTHROMBIN [id number] 08:03:00* Test Item Value Reference Range Comments PROTHROMBIN TIME PATIENT (test code=PTP) 12.6 SECONDS 9.3-12.9 INTERNATIONAL NORMAL RATIO (test code=INR) 1.1 0.8-1.2 TARGET INR BY INDICATION Indication INR1. Prophylaxis of venous thrombosis 2.0 - 3.0 (orthopedic surgery), Prophylaxis of venous thrombosis (other than high-risk surgery), Treatment of Deep Vein Thrombosis/Pulmonary Embolism, Prevention of systemic embolism - Tissue heart valves, Acute Myocardial Infarction (to prevent systemic embolism), Valvular heart disease, Atrial Fibrillation, Bileaflet mechanical valve in aortic position.2. Mechanical prosthetic valves (high risk), 2.5 - 3.5 Presence of Lupus Anticoagulant or Antiphospholipid Antibodies, Prevention of systemic embolism - Acute Myocardial Infarction (to prevent recurrent infarct). THROMBOPLASTIN TIME [id number] 08:03:00* Test Item Value Reference Range Comments THROMBOPLASTIN TIME PARTIAL (test code=PTT) 31.9 Seconds 25.0-39.5 Therapeutic Range: 61.8-83.8 Sec Effective 06/05/2013 CBC W/AUTO [id number] 07:50:00* Test Item Value Reference Range Comments WHITE BLOOD CELL (test code=WBC) 6.59 x10 3/uL 4.5-11.0 RED BLOOD CELL (test code=RBC) 3.70 x10 6/uL 3.54-5.02 HEMOGLOBIN (test code=HGB) 12.8 g/dL 11.0-15.0 HEMATOCRIT (test code=HCT) 39.8 % 33.0-45.0 MEAN CELL VOLUME (test code=MCV) 107.6 fL 81.0-99.0 MEAN CELL HGB (test code=MCH) 34.6 pg 27.0-33.0 MEAN CELL HGB CONCETRATION (test code=MCHC) 32.2 g/dL 33.0-37.0 RED CELL DISTRIBUTION WIDTH CV (test code=RDW) 12.1 % 11.5-14.5 RED CELL DISTRIBUTION WIDTH SD (test code=RDW-SD) 48.1 fL 37.0-54.0 PLATELET COUNT (test code=PLT) 270 x10 3/uL 150-400 MEAN PLATELET VOLUME (test code=MPV) 9.8 fL 7.0-9.0 NEUTROPHIL % (test code=NT%) 89.8 % 56.0-77.0 IMMATURE GRANULOCYTE % (test code=IG%) 0.3 % 0.0-2.0 LYMPHOCYTE % (test code=LY%) 6.4 % 14.0-32.0 MONOCYTE % (test code=MO%) 3.2 % 4.8-9.0 EOSINOPHIL % (test code=EO%) 0.0 % 0.3-3.7 BASOPHIL % (test code=BA%) 0.3 % 0.0-2.0 NUCLEATED RBC % (test code=NRBC%) 0.0 % 0-0 NEUTROPHIL # (test code=NT#) 5.92 x10 3/uL 2.0-7.6 IMMATURE GRANULOCYTE # (test code=IG#) 0.02 x10 3/uL 0.00-0.03 LYMPHOCYTE # (test code=LY#) 0.42 x10 3/uL 1.0-3.8 MONOCYTE # (test code=MO#) 0.21 x10 3/uL 0.1-0.8 EOSINOPHIL # (test code=EO#) 0.00 x10 3/uL 0.0-0.2 BASOPHIL # (test code=BA#) 0.02 x10 3/uL 0.0-0.2 NUCLEATED RBC # (test code=NRBC#) 0.00 x10 3/uL 0.0-0.1 MANUAL DIFF REQUIRED (test code=MDIFF) NO RBC [id number] 07:50:00* Test Item Value Reference Range Comments ANISOCYTOSIS (test code=ANISO) CBC W/AUTO [id number] 07:50:00* Test Item Value Reference Range Comments WHITE BLOOD CELL (test code=WBC) 6.59 x10 3/uL 4.5-11.0 RED BLOOD CELL (test code=RBC) 3.70 x10 6/uL 3.54-5.02 HEMOGLOBIN (test code=HGB) 12.8 g/dL 11.0-15.0 HEMATOCRIT (test code=HCT) 39.8 % 33.0-45.0 MEAN CELL VOLUME (test code=MCV) 107.6 fL 81.0-99.0 MEAN CELL HGB (test code=MCH) 34.6 pg 27.0-33.0 MEAN CELL HGB CONCETRATION (test code=MCHC) 32.2 g/dL 33.0-37.0 RED CELL DISTRIBUTION WIDTH CV (test code=RDW) 12.1 % 11.5-14.5 RED CELL DISTRIBUTION WIDTH SD (test code=RDW-SD) 48.1 fL 37.0-54.0 PLATELET COUNT (test code=PLT) 270 x10 3/uL 150-400 MEAN PLATELET VOLUME (test code=MPV) 9.8 fL 7.0-9.0 NEUTROPHIL % (test code=NT%) 89.8 % 56.0-77.0 IMMATURE GRANULOCYTE % (test code=IG%) 0.3 % 0.0-2.0 LYMPHOCYTE % (test code=LY%) 6.4 % 14.0-32.0 MONOCYTE % (test code=MO%) 3.2 % 4.8-9.0 EOSINOPHIL % (test code=EO%) 0.0 % 0.3-3.7 BASOPHIL % (test code=BA%) 0.3 % 0.0-2.0 NUCLEATED RBC % (test code=NRBC%) 0.0 % 0-0 NEUTROPHIL # (test code=NT#) 5.92 x10 3/uL 2.0-7.6 IMMATURE GRANULOCYTE # (test code=IG#) 0.02 x10 3/uL 0.00-0.03 LYMPHOCYTE # (test code=LY#) 0.42 x10 3/uL 1.0-3.8 MONOCYTE # (test code=MO#) 0.21 x10 3/uL 0.1-0.8 EOSINOPHIL # (test code=EO#) 0.00 x10 3/uL 0.0-0.2 BASOPHIL # (test code=BA#) 0.02 x10 3/uL 0.0-0.2 NUCLEATED RBC # (test code=NRBC#) 0.00 x10 3/uL 0.0-0.1 MANUAL DIFF REQUIRED (test code=MDIFF) NO RBC [id number] 07:50:00* Test Item Value Reference Range Comments ANISOCYTOSIS (test code=ANISO)
[2019-03-14 10:05] VITALS: BP 132/74
--- NOTE | 2019-03-14 16:12 | Operative Report ---
DATE OF PROCEDURE: 03/14/2019 SURGEON: Rishabh Tran MD PREOPERATIVE DIAGNOSES: Abdominal pain and blood in the in the stools. POSTOPERATIVE DIAGNOSES: Gastroesophageal reflux and inflamed thrombosed internal hemorrhoids. OPERATIONS PERFORMED: EGD and colonoscopy. ANESTHESIA: Local and MAC. COMPLICATIONS: None. ESTIMATED BLOOD LOSS: None. DESCRIPTION OF PROCEDURE: With the patient lying in bed in the lateral position under good IV sedation, the flexible Olympus gastroscope was introduced into the back of the throat and slowly and carefully advanced into the upper esophagus. The upper two-thirds of the esophagus was found to be within normal limits. The lower third of the esophagus just above the gastroesophageal junction shows some signs of some mild reflux esophagitis. The esophagogastric junction was then entered and a very very small Peter-Y gastric pouch was encountered. There was a Peter-en-Y anastomosis present that had a long efferent limb that ended in a blind pouch. The efferent limb was then scoped all the way down to the jejunojejunostomy. There was absolutely no sign of any interception. There was no sign of obstruction. The mucosa appeared to be within normal limits. The scope was then slowly and carefully withdrawn back into the pouch and removed with the previously described findings. The flexible Olympus colonoscope was then introduced into the rectum and slowly and carefully advanced up the rectum, sigmoid colon, descending colon, transverse colon, and into the cecum. The only positive findings were to the anal area, where there was some large internal hemorrhoids with a stigmata of recent bleeding, which likely explains the patient's blood in the stool. The rest of the colonoscopy did not show any polypoid masses, tumors, or diverticulosis. Scope was then withdrawn. The patient tolerated both procedures well and returned to the recovery room in stable condition. MD EMILIA Sewell/MODL /[id number]
== END | disposition home or self-care (01) ==
LOC: OR 06:38
PROVIDERS: ATTEND Surgery
DX: K92.1 Melena (principal); K64.5 Perianal venous thrombosis; K21.0 Gastro-esophageal reflux disease with esophagitis; Z98.84 Bariatric surgery status; Z93.4 Other artificial openings of gastrointestinal tract status; I10 Essential (primary) hypertension; Z91.041 Radiographic dye allergy status; M06.9 Rheumatoid arthritis, unspecified; Z01.810 Encounter for preprocedural cardiovascular examination; Z01.812 Encounter for preprocedural laboratory examination; Z01.818 Encounter for other preprocedural examination
CPT/HCPCS: 36415; 43235; 45378; 71046; 80053; 85025; 93005; J2250; J2704; J3010; 43239

== ENCOUNTER 2022-02-14 06:07 | Observation (INO) | payer BC, OTHER ==
[~2022-02-14] VITALS: Ht 165.1 cm; Wt 99.3 kg
[~2022-02-14 06:07] MED LIST changes: +EMBREL; -FENTANYL CITRATE/PF 100MCG/2 ML INJ ONE; +LIOTHYRONINE SO5 MCG PO; +MAGNESIUM OXID400 MG PO; -MIDAZOLAM HCL 2 MG/2 ML VIAL ONE; +OZEMPIC0.25 MG/0. SC; +PANTOPRAZOLE SO20 MG PO; -PROPOFOL IV EMULSION 10 MG/ML 20 ML VIAL ONE; -SIMETHICONE 40 MG/0.6 ML BTL ONE
[2022-02-14] MEDS ORDERED: Vancomycin IV 1,000 MG ONE (06:51)
[2022-02-14] MEDS ORDERED: SODIUM CHLORIDE 0.9% 500ML 500 ML ONE (06:51)
[2022-02-14] MEDS ORDERED: TRANEXAMIC ACID 20 ML ONE (06:52)
[2022-02-14] MEDS ORDERED: CELECOXIB 200 MG CAP ONE (06:58)
[2022-02-14] MEDS ORDERED: GABAPENTIN 300 MG CAP ONE (06:59)
[2022-02-14] MEDS ORDERED: DEXAMETHASONE SOD PHOS 10 MG/1 ML VIAL ONE (06:59)
[2022-02-14 07:34] LABS: BASOPHILS % 0.9 % (0.0-1.0); EOSINOPHILS # (AUTO) 0.2 (0.0-0.4); EOSINOPHILS % 6.1 % (0.0-6.0); HEMATOCRIT 36.7 % (34.2-44.1); HEMOGLOBIN 11.7 g/dL (12.0-16.0); LYMPHOCYTES % 29.1 % (18.0-39.1); MEAN CORPUSCULAR HEMOGLOBIN 34.1 pg (28-32); MEAN CORPUSCULAR HGB CONC 31.9 g/dL (31-35); MONOCYTES # (AUTO) 0.3 (0.2-0.8); MONOCYTES % 9.8 % (4.4-11.3); NEUTROPHILS # (AUTO) 1.8 (2.1-6.9); NEUTROPHILS % 54.1 % (38.7-80.0); PLATELET COUNT 222 x10e3/uL (140-360); RED BLOOD COUNT 3.43 x10e6/uL (3.6-5.1)
[2022-02-14] MEDS ORDERED: DEXTROSE 5% 250ML 250 ML IV ONE (07:35)
[2022-02-14] MEDS ORDERED: ROPIVACAINE 246.25 MG, EPINEPHRINE HCL 1:1000 1ML 0.5 MG, CLONIDINE HCL 0.08 MG, KETORO... INJ ONE ×5 (08:00)
[2022-02-14 08:03] LABS: CALCIUM 8.3 mg/dL (8.4-10.2); CREATININE, SERUM 0.75 mg/dL (0.57-1.11)
[2022-02-14] MEDS ORDERED: DIPHENHYDRAMINE HCL INJ 50 MG/ML VIAL IV PRN (09:45)
[2022-02-14] MEDS ORDERED: HYDROCODONE/APAP 7.5MG-325MG 1 EA TAB PO PRN (09:45)
[2022-02-14] MEDS ORDERED: DOCUSATE SODIUM 100 MG CAP PO PRN (09:45)
[2022-02-14] MEDS ORDERED: ONDANSETRON HCL INJ 2MG/ML 2ML 2 MG/ML VIAL IV PRN (09:45)
[2022-02-14] MEDS ORDERED: HYDROCODONE/APAP 5MG-325MG TAB PO PRN (09:45)
[2022-02-14] MEDS ORDERED: FENTANYL CITRATE/PF 100MCG/2 ML INJ ONE ×2 (10:31→12:58)
[2022-02-14 11:59] VITALS: BP 115/79
[2022-02-14 12:05] VITALS: BP 115/79
[2022-02-14 12:06] VITALS: BP 115/79
[2022-02-14] MEDS ORDERED: HYDROCODON-ACE1 EA12 PO (12:16)
[2022-02-14] MEDS ORDERED: SODIUM CHLORIDE 0.9% 1000ML 1,000 ML IV SCH (12:30)
[2022-02-14] MEDS ORDERED: MIDAZOLAM HCL 2 MG/2 ML VIAL ONE (12:58)
[2022-02-14] MEDS ORDERED: KETAMINE HCL INJ 50 MG/ML 10 ML VIAL ONE (12:58)
[2022-02-14] MEDS ORDERED: ASPIRIN 325 MG TAB PO SCH (17:00)
[2022-02-14] MEDS ORDERED: CELECOXIB 200 MG CAP PO SCH (17:00)
[2022-02-14] MEDS ORDERED: ROPIVACAINE 0.5% 5 MG/ML 30 ML SDV ONE (19:31)
[2022-02-15] MEDS ORDERED: ACETAMINOPHEN 1000 MG/100 ML IV PRN (09:45)
== END 2022-02-14 16:45 | disposition home or self-care (01) ==
LOC: OR 06:07 → PACU V 09:39 → MED/SURG 11:58
PROVIDERS: ADMIT Specialist; ATTEND Specialist
DX: M17.12 Unilateral primary osteoarthritis, left knee (principal); D64.9 Anemia, unspecified; J45.909 Unspecified asthma, uncomplicated; M06.9 Rheumatoid arthritis, unspecified; Z20.822 Contact with and (suspected) exposure to COVID-19; Z01.818 Encounter for other preprocedural examination; Z91.041 Radiographic dye allergy status; E03.9 Hypothyroidism, unspecified; K21.9 Gastro-esophageal reflux disease without esophagitis
CPT/HCPCS: 0223U; 36415; 80048; 82948; 85025; 86850; 86900; 86920; 93005; 94799; C1713; C1776; G0378; J0171; J0690; J1100; J1885; J2250; J2795; J3010; J3370; J7040; J7070

== ENCOUNTER → 2022-03-15 | Outpatient (CLI) | payer OTHER ==
[~2022-03-15] MED LIST changes: +HYDROCODON-ACE1 EA12 PO
== END ==
LOC: RAD 14:24
PROVIDERS: ATTEND Physician Assistant
DX: M79.662 Pain in left lower leg (principal)
CPT/HCPCS: 93971

== ENCOUNTER 2022-09-12 06:00 | Observation (INO) | payer BC, OTHER ==
[2022-09-09 10:44] LABS: BASOPHILS % 0.4 % (0.0-1.0); EOSINOPHILS # (AUTO) 0.1 (0.0-0.4); EOSINOPHILS % 1.6 % (0.0-6.0); HEMATOCRIT 37.1 % (34.2-44.1); HEMOGLOBIN 12.3 g/dL (12.0-16.0); LYMPHOCYTES # (AUTO) 0.9 (1.0-3.2); LYMPHOCYTES % 18.2 % (18.0-39.1); MEAN CORPUSCULAR HEMOGLOBIN 34.3 pg (28-32); MEAN CORPUSCULAR HGB CONC 33.2 g/dL (31-35); MEAN CORPUSCULAR VOLUME 103.3 fL (81-99); MONOCYTES # (AUTO) 0.4 (0.2-0.8); MONOCYTES % 7.3 % (4.4-11.3); NEUTROPHILS # (AUTO) 3.6 (2.1-6.9); NEUTROPHILS % 71.9 % (38.7-80.0); PLATELET COUNT 236 x10e3/uL (140-360); RED BLOOD COUNT 3.59 x10e6/uL (3.6-5.1); RED CELL DISTRIBUTION WIDTH 13.2 % (11.7-14.4)
[~2022-09-12 06:00] MED LIST changes: +ATIVAN0.5 MG PO; +B12 IM; +BUPROPION XL150 MG PO; +TRAZODONE HCL100 MG PO
[2022-09-12] MEDS ORDERED: Vancomycin IV 1,000 MG ONE (06:09)
[2022-09-12] MEDS ORDERED: SODIUM CHLORIDE 0.9% 500ML 500 ML ONE (06:10)
[2022-09-12] MEDS ORDERED: TRANEXAMIC ACID 20 ML ONE (06:10)
[2022-09-12] MEDS ORDERED: CELECOXIB 200 MG CAP ONE (06:18)
[2022-09-12] MEDS ORDERED: DEXAMETHASONE SOD PHOS 10 MG/1 ML VIAL ONE ×2 (06:18→11:55)
[2022-09-12] MEDS ORDERED: GABAPENTIN 300 MG CAP ONE (06:18)
[2022-09-12] MEDS ORDERED: CEFAZOLIN SODIUM 2 GM ONE (06:19)
[2022-09-12] MEDS ORDERED: LACTATED RINGER'S 1,000 ML ONE (06:19)
[2022-09-12] MEDS ORDERED: DEXTROSE 5% 250ML 250 ML IV ONE (06:27)
[2022-09-12] MEDS ORDERED: ACETAMINOPHEN 1000 MG/100 ML 100 ML IV ONE (06:37)
[2022-09-12] MEDS ORDERED: ROPIVACAINE 246.25 MG, EPINEPHRINE HCL 1:1000 1ML 0.5 MG, CLONIDINE HCL 0.08 MG, KETORO... INJ ONE ×5 (07:30)
[2022-09-12] MEDS ORDERED: DIPHENHYDRAMINE HCL INJ 50 MG/ML VIAL IV PRN (08:45)
[2022-09-12] MEDS ORDERED: ACETAMINOPHEN 650 MG SUPP PR PRN (08:45)
[2022-09-12] MEDS ORDERED: DOCUSATE SODIUM 100 MG CAP PO PRN (08:45)
[2022-09-12] MEDS ORDERED: ONDANSETRON HCL INJ 2MG/ML 2ML 2 MG/ML VIAL IV PRN (08:45)
[2022-09-12] MEDS ORDERED: HYDROCODONE/APAP 7.5MG-325MG 1 EA TAB PO PRN (08:45)
[2022-09-12] MEDS ORDERED: HYDROCODONE/APAP 5MG-325MG TAB PO PRN (08:45)
[2022-09-12] MEDS: FENTANYL CITRATE/PF 100MCG/2 ML INJ ONE ×3 (09:25→09:44)
[2022-09-12] MEDS ORDERED: HYDROCODONE/APAP 5MG-325MG TAB ONE (10:02)
[2022-09-12] MEDS ORDERED: METOCLOPRAMIDE HCL 10 MG/2ML VIAL ONE (10:18)
[2022-09-12] MEDS ORDERED: MEPIVACAINE HCL 2% 20 ML VIAL ONE (11:55)
[2022-09-12] MEDS ORDERED: EPHEDRINE SULFATE INJ 50 MG/ML VIAL ONE (12:30)
[2022-09-12] MEDS ORDERED: SEVOFLURANE INHAL SOLN 250 ML PEN BTL ONE (12:30)
[2022-09-12] MEDS ORDERED: KETOROLAC TROMETHAMINE 30 MG/ML VIAL ONE (12:30)
[2022-09-12] MEDS ORDERED: DEXAMETHASONE SOD PHOS INJ 4 MG/ML SDV ONE (12:30)
[2022-09-12] MEDS ORDERED: LIDOCAINE HCL 2% LOCAL INJ 5 ML SDV VIAL INJ ONE (12:30)
[2022-09-12] MEDS ORDERED: POVIDONE IODINE 0.05% 0.05 % ML PO ONE (12:30)
[2022-09-12] MEDS ORDERED: PROPOFOL IV EMULSION 10 MG/ML 20 ML VIAL ONE (12:30)
[2022-09-12] MEDS ORDERED: ONDANSETRON HCL INJ 2MG/ML 2ML 2 MG/ML VIAL ONE (12:30)
[2022-09-12] MEDS ORDERED: FENTANYL CITRATE/PF 100MCG/2 ML INJ ONE (12:33)
[2022-09-12] MEDS ORDERED: MIDAZOLAM HCL 2 MG/2 ML VIAL ONE (12:33)
[2022-09-12 14:00] VITALS: BP 115/67; PULSE 81; RESP 17; O2SAT 97
[2022-09-12] MEDS ORDERED: HYDROCODON-ACE1 EA12 PO (14:08)
[2022-09-12] MEDS ORDERED: SODIUM CHLORIDE 0.9% 1000ML 1,000 ML IV SCH (15:30)
[2022-09-12] MEDS ORDERED: CELECOXIB 200 MG CAP PO SCH (17:00)
[2022-09-12] MEDS ORDERED: ASPIRIN 325 MG TAB PO SCH (20:00)
[2022-09-12] MEDS ORDERED: ZOLPIDEM TARTRATE 5 MG TAB PO PRN (21:00)
[2022-09-13] MEDS ORDERED: ACETAMINOPHEN 1000 MG/100 ML IV PRN (08:45)
== END 2022-09-12 14:06 | disposition home health service (06) ==
LOC: OR 06:00 → PACU V 08:45
PROVIDERS: ADMIT Specialist; ATTEND Specialist
DX: M17.11 Unilateral primary osteoarthritis, right knee (principal); Z96.652 Presence of left artificial knee joint; M06.9 Rheumatoid arthritis, unspecified; I10 Essential (primary) hypertension; J45.909 Unspecified asthma, uncomplicated; Z91.041 Radiographic dye allergy status; Z01.810 Encounter for preprocedural cardiovascular examination; Z01.812 Encounter for preprocedural laboratory examination; Z01.818 Encounter for other preprocedural examination; Z20.822 Contact with and (suspected) exposure to COVID-19; Z79.85 Long-term (current) use of injectable non-insulin antidiabetic drugs; Z79.899 Other long term (current) drug therapy; Z68.35 Body mass index [BMI] 35.0-35.9, adult; Z86.2 Personal history of diseases of the blood and blood-forming organs and certain disorders involving the immune mechanism
CPT/HCPCS: 0223U; 27447; 36415 ×2; 71046; 73560; 82948; 85025; 86850; 86900; 86920; 93005; 97110; 97116; 97162; C1713 ×2; C1776 ×3; G0378; J0131; J0171; J0670; J1100 ×2; J1885; J2001; J2250; J2405; J2704; J2765; J2795; J3010; J3370; J7040; J7070; J7121